=== PATIENT | male | born 1945 | race Caucasian/White ===

== ENCOUNTER → 2018-12-17 | Outpatient (CLI) | payer OTHER | LOC: CAT 07:50 | DX: Z13.6 Encounter for screening for cardiovascular disorders (principal); E78.00 Pure hypercholesterolemia, unspecified; I25.10 Atherosclerotic heart disease of native coronary artery without angina pectoris ==

== ENCOUNTER 2020-12-18 21:48 | Emergency (ER) | payer OTHER ==
[~2020-12-18] VITALS: Ht 188 cm; Wt 81.7 kg
--- NOTE | ~2020-12-18 | EMS ---
[address] [address] EMS Patient Care Report Name: VAHID CORDOBA III Room #: PRE M.R.#: [id number] Admission: Attend Phys: Discharge: Date of : 49 Report #: [id number] THIS REPORT FOR: //name// Report Transmitted: 12/18/2020 21:59 EMS Care Summary [place], [place]/[facility] Incident [id number] @ 12/18/2020 21:00 Incident Location [address] [place] [address] Patient VAHID CORDOBA Female, 75 Years 1945 Patient Address [address] [place] [address] Patient History None Reported, Patient Allergies No known allergies, Patient Medications None Reported, Chief Complaint nvd Disposition Transported No Lights/[place] Dispatch Reason Sick Person Transported To [facility] Narrative pts led ems to pt. pt found supine in bed and alert. pt a&ox4 gcs 15 and did not present in apparent distress. pt complained of nvd x5 hrs. during assessment pts stated to ems "lets get moving". pts was informed that a basic assessment must be performed. pt requested to be transported to [facility]. [address] [address] EMS Patient Care Report Name: VAHID CORDOBA III Room #: [facility] Junaid.#: [id number] Admission: Attend Phys: Discharge: Date of : 49 Report #: [id number] pt stated he could walk with assistance to ems cot. ems assisted pt to ems cot. pt was transferred onto ems cot. pt was secured in a semi fowlers position without incident. pt was loaded into ambulance. pt was covered with a blanket. pt presented with hypotension. 20 ga sl iv in pts R hand was obtained. pt was administered 250ml ns iv. pt was administered 4mg zofran iv. pt was transported non emergent. transport was uneventful and pt rested on ems cot. pts bp improved to target levels and pt thanked ems. pt care was transferred to appropriate staff and ems goes back in service. Initial Vitals @21:20P: 68,R: 20,BP: 92/60,Pain: 0/10,GCS: 15,Glucose: 126,SpO2: 96,Revised Trauma: 12, @21:23P: 68,R: 20,BP: 78/50,GCS: 15,SpO2: 96,Revised Trauma: 11, @21:40P: 68,R: 20,BP: 124/72,GCS: 15,SpO2: 96,Revised Trauma: 12, Assessments @21:16MENTAL:No Abnormalities,SKIN:No Abnormalities,HEENT:Head/Face: No Abnormalities,Eyes: No Abnormalities,Neck/Airway: No Abnormalities,LUNG SOUNDS:General: Vomiting,General: Diarrhea,General: Nausea,Left Upper: No Abnormalities,Right Upper: No Abnormalities,Left Lower: No Abnormalities,Right Lower: No Abnormalities,ABDOMEN:General: Vomiting,General: Diarrhea,General: Nausea,Left Upper: No Abnormalities,Right Upper: No Abnormalities,Left Lower: No Abnormalities,Right Lower: No Abnormalities,PELVIS//GI:No Abnormalities,EXTREMITIES:Left Arm: No Abnormalities,Right Arm: No Abnormalities,Left Leg: No Abnormalities,Right Leg: No Abnormalities,PULSE:NEURO:No Abnormalities,@21:40MENTAL:No Abnormalities,SKIN:No Abnormalities,HEENT:Head/Face: No Abnormalities,Eyes: No Abnormalities,Neck/Airway: No Abnormalities,LUNG SOUNDS:General: No Abnormalities,Left Upper: No Abnormalities,Right Upper: No Abnormalities,Left Lower: No Abnormalities,Right Lower: No Abnormalities,ABDOMEN:General: No Abnormalities,Left Upper: No Abnormalities,Right Upper: No Abnormalities,Left Lower: No Abnormalities,Right Lower: No Abnormalities,PELVIS//GI:No Abnormalities,EXTREMITIES:Left Arm: No Abnormalities,Right Arm: No Abnormalities,Left Leg: No Abnormalities,Right Leg: No Abnormalities,PULSE:NEURO:No Abnormalities, Impression Abdominal Pain Procedures @21:16ALS AssessmentResponse: UnchangedSucceeded@21:25Normal Saline (.9% NaCl) 250cc (20 ga) Site: Hand-RightResponse: ImprovedSucceeded@21:29Zofran - 4 Milligrams (mg) - Intravenous (IV)Response: Improved Timeline 20:58,Call Received [address] [address] EMS Patient Care Report Name: VAHID CORDOBA [facility] Room #: [facility] M.R.#: [id number] Admission: Attend Phys: Discharge: Date of : 49 Report #: [id number] 20:58,Dispatch Notified 21:00,Dispatched 21:02,En Route 21:15,On Scene 21:16,At Patient 21:16,ALS Assessment,Response: UnchangedSucceeded, 21:20,BP: 92/60 M,PULSE: 68,RR: 20 R,SPO2: 96 Ox,ETCO2: ,B,PAIN: 0,GCS: 15, 21:23,BP: 78/50 M,PULSE: 68,RR: 20 R,SPO2: 96 Ox,ETCO2: ,BG: ,PAIN: ,GCS: 15, 21:25,Normal Saline (.9% NaCl) 250cc 20 ga Site: Hand-Right,Response: ImprovedSucceeded, 21:29,Zofran - 4 Milligrams (mg) - Intravenous (IV),Response: Improved 21:35,Depart Scene 21:40,BP: 124/72 M,PULSE: 68,RR: 20 R,SPO2: 96 Ox,ETCO2: ,BG: ,PAIN: ,GCS: 15, 21:42,At Destination 22:07,Call Closed Disclaimer v1.1 Copyright 2020 [employer] This EMS Care Summary contains data elements from the applicable legal record (which may be displayed differently). It is designed to provide pertinent information for the following purposes: continuity of care, clinical quality, and state data reporting. The complete legal record is available to ED staff and administrators of the receiving hospital in [employer]'s Patient Tracker. All data is provided "as is."
[2020-12-18] MEDS ORDERED: LEVO-T50 MCG PO (22:18)
[2020-12-18 22:52] LABS: ANION GAP 15 mmol/L (7-16); BUN 20 mg/dL (7-18); CALCIUM 9.1 mg/dL (8.5-10.1); CHLORIDE 103 mmol/L (98-107); CO2 22 mmol/L (21-32); CREATININE 1.6 mg/dL (0.7-1.3); GLUCOSE 151 mg/dL (74-106); POTASSIUM 4.8 mmol/L (3.5-5.1); SODIUM 140 mmol/L (136-145)
[2020-12-18 23:03] LABS: ALBUMIN 4.7 g/dL (3.4-5.0); LIPASE 119 U/L (73-393); SGOT 22 U/L (15-37); SGPT 20 U/L (30-65); TOTAL BILIRUBIN 1.1 mg/dL (0.2-1.0); TOTAL PROTEIN 8.5 g/dL (6.4-8.2); TROPONIN-I <0.06 ng/mL (<0.06)
[2020-12-19] MEDS ORDERED: ZOFRAN ODT4 MG PO (00:52)
[2020-12-19 01:31] VITALS: BP 124/64
--- NOTE | 2020-12-19 07:38 | EKG ---
[place] [address] [facility] [place] [address] ELECTROCARDIOGRAM REPORT Name: VAHID CORDOBA [facility] [id number] Admission: 12/18/20 Attend Phys: Discharge: 12/19/20 Date of : 49 Report #: [id number] [facility] ED Test Date: 2020-12-18 Test Time: 22:28:31 Pat Name: VAHID CORDOBA Department: Room: Gender: M Recovery Collector: [place] : 1945 Requested By: Mike Vaughan Order Number: [id number] MD: Bruno Light Measurements Intervals [place] Rate: 87 P: 51 MD: 165 QRS: 8 QRSD: 84 T: 16 QT: 435 QTc: 524 Interpretive Statements Sinus rhythm Left atrial enlargement Borderline T wave abnormalities Prolonged QT interval Baseline wander in lead(s) V1 No previous ECG available for comparison Electronically Signed On 12-19-2020 7:38:28 CDT by Bruno Light [email or web address] <ELECTRONICALLY SIGNED> By: Bruno Light MD, [facility] 12/19/20 0738 [id number] Bruno Light MD, FACC /EPI
== END 2020-12-19 01:33 | disposition home or self-care (01) ==
LOC: ER 21:48
PROVIDERS: Emergency Medicine
DX: B34.9 Viral infection, unspecified (principal); Z79.899 Other long term (current) drug therapy; Z20.822 Contact with and (suspected) exposure to COVID-19